=== PATIENT | female | born 1945 | race Caucasian/White ===

== ENCOUNTER 2021-02-25 15:08 | Inpatient (IN) | payer MEDICARE, BC ==
[2021-02-25 16:26] LABS: #Basophils 0.1 10x3/uL (0.0-0.2); #Monocytes 0.7 10x3/uL (0.0-1.1); #Neutrophils 10.1 10x3/uL (1.5-8.4); %Basophils 0.6 % (0.0-2.0); %Eosinophils 0.2 % (0.0-6.0); %Lymphocytes 5.4 % (18.0-47.0); %Monocytes 5.9 % (0.0-10.0); %Neutrophils 87.5 % (40.0-75.0); Hemoglobin 14.2 g/dL (12.0-15.5); Mean Corpuscular HGB CONC 32.3 g/dL (32.0-36.0); Mean Corpuscular Hemoglobin 28.7 pg (27.0-33.0); Mean Corpuscular Volume 88.7 fl (81.6-98.3); Mean Platelet Volume 10.2 fl (7.4-10.4); Platelet Count 276 10x3/uL (150-450); RBC Distribution Width 14.9 % (11.5-14.5); Red Blood Cell (RBC) Count 4.95 10x6/uL (3.90-5.03); White Blood Cell (WBC) Count 11.6 10x3/uL (3.5-10.5)
[2021-02-25 16:39] LABS: ALT (SGPT) 27 U/L (8-55); AST (SGOT) 25 U/L (5-34); Albumin 4.2 g/dL (3.4-4.8); Alkaline Phosphatase 155 U/L (40-110); Anion Gap 17 mmol/L (10-20); BUN (Urea Nitrogen) 19 mg/dL (9.8-20.1); Bilirubin, Total 0.5 mg/dL (0.2-1.2); Calc. Creatinine Clearance 0 mL/min (70-130); Calcium 8.9 mg/dL (7.8-10.44); Carbon Dioxide 22 mmol/L (23-31); Chloride 104 mmol/L (98-107); Globulin 2.7 g/dL (2.4-3.5); Glucose 185 mg/dL (83-110); Lipase 25 U/L (8-78); Potassium 3.2 mmol/L (3.5-5.1); Protein, Total 6.9 g/dL (5.8-8.1); Sodium 140 mmol/L (136-145)
[2021-02-25 17:27] LABS: SARS-CoV-2 NAA Rapid Test DETECTED (NotDetected)
[2021-02-25 19:04] LABS: Lactic Acid 3.1 mmol/L (0.5-2.2)
[2021-02-25] MEDS ORDERED: Calcium Carbonate 500 MG ChewTAB PO PRN (23:20)
[2021-02-25] MEDS ORDERED: Guaifenesin DM 100-10/5 ML UDCUP PO PRN (23:20)
[2021-02-25] MEDS ORDERED: Acetaminophen 325 MG TAB PO PRN (23:20)
[2021-02-25] MEDS ORDERED: Ondansetron PF 4 MG/2 ML Vial IVP PRN (23:20)
[2021-02-25] MEDS ORDERED: Potassium Chloride 20 MEQ in Premix Bag 1 BAG IVPB SCH (23:30)
[2021-02-25] MEDS ORDERED: 1/2 NS w/KCL 20 mEq 1,000 ML IV SCH (23:30)
[2021-02-26] MEDS ORDERED: Potassium Chloride 20 MEQ in Premix Bag 1 BAG IVPB SCH (02:30)
[2021-02-26] MEDS: 1/2 NS w/KCL 20 mEq 1,000 ML IV SCH ×2 (02:40→12:55)
[2021-02-26 04:21] LABS: #Monocytes 0.8 10x3/uL (0.0-1.1); %Basophils 0.3 % (0.0-2.0); %Lymphocytes 6.6 % (18.0-47.0); %Monocytes 10.3 % (0.0-10.0); %Neutrophils 82.4 % (40.0-75.0); Hemoglobin 13.5 g/dL (12.0-15.5); Mean Corpuscular HGB CONC 32.4 g/dL (32.0-36.0); Mean Corpuscular Volume 89.7 fl (81.6-98.3); Mean Platelet Volume 11.1 fl (7.4-10.4); Platelet Count 247 10x3/uL (150-450); RBC Distribution Width 14.9 % (11.5-14.5); Red Blood Cell (RBC) Count 4.65 10x6/uL (3.90-5.03); White Blood Cell (WBC) Count 7.3 10x3/uL (3.5-10.5)
[2021-02-26 05:10] LABS: Lactic Acid 3.1 mmol/L (0.5-2.2)
[2021-02-26 08:38] LABS: ALT (SGPT) 26 U/L (8-55); AST (SGOT) 37 U/L (5-34); Alkaline Phosphatase 143 U/L (40-110); Anion Gap 19 mmol/L (10-20); BUN (Urea Nitrogen) 14 mg/dL (9.8-20.1); Bilirubin, Total 0.4 mg/dL (0.2-1.2); Calc. Creatinine Clearance 0 mL/min (70-130); Calcium 8.9 mg/dL (7.8-10.44); Carbon Dioxide 23 mmol/L (23-31); Chloride 104 mmol/L (98-107); Globulin 3.4 g/dL (2.4-3.5); Glucose 114 mg/dL (83-110); Magnesium 2.2 mg/dL (1.6-2.6); Potassium 3.7 mmol/L (3.5-5.1); Protein, Total 7.4 g/dL (5.8-8.1); Sodium 142 mmol/L (136-145)
[2021-02-26] MEDS: Enoxaparin Sodium 40 MG/0.4 ML SYRINGE SC SCH (10:00)
[2021-02-26 12:42] LABS: Hemoglobin A1c 5.3 % (4.0-6.0)
[2021-02-26] MEDS: Zinc Gluconate 50 MG TAB PO SCH (17:25)
[2021-02-26] MEDS: Cholecalciferol 1,000 UNITS (25 MCG) TAB PO SCH (17:25)
[2021-02-26] MEDS: Ascorbic Acid 500 mg Chewable Tablet PO SCH (17:25)
[2021-02-26] MEDS: Famotidine 20 MG TAB PO SCH ×2 (17:25→21:33)
[2021-02-26] MEDS: Donepezil HCl 5 MG TAB PO SCH (21:33)
[2021-02-26] MEDS: Atorvastatin Calcium 20 MG TAB PO SCH (21:33)
[2021-02-27] MEDS: 1/2 NS w/KCL 20 mEq 1,000 ML IV SCH ×3 (01:24→16:19)
[2021-02-27 04:10] LABS: Bilirubin Neg (Negative); Blood, Urine 10 (Negative); Clarity Cloudy (Clear); Glucose, Urine (Dipstick) Normal (Negative); Ketone, Urine 5 mg/dL (Negative); Leukocyte 100 (Negative); Nitrite Negative (Negative); Protein, Urine (Dipstick) 30 mg/dl (Neg-Trace); Specific Gravity, Urine 1.025 (1.002-1.036)
[2021-02-27 04:42] LABS: Bacteria/HPF 4+ HPF (None Seen); RBC/HPF 0-3 HPF (0-3)
[2021-02-27 05:03] LABS: Lactic Acid 1.8 mmol/L (0.5-2.2)
[2021-02-27 07:07] LABS: Hemoglobin 12.9 g/dL (12.0-15.5); Mean Corpuscular HGB CONC 33.3 g/dL (32.0-36.0); Mean Corpuscular Hemoglobin 28.5 pg (27.0-33.0); Mean Corpuscular Volume 85.4 fl (81.6-98.3); Mean Platelet Volume 11.9 fl (7.4-10.4); Platelet Count 171 10x3/uL (150-450); RBC Distribution Width 14.7 % (11.5-14.5); Red Blood Cell (RBC) Count 4.53 10x6/uL (3.90-5.03); White Blood Cell (WBC) Count 7.3 10x3/uL (3.5-10.5)
[2021-02-27 07:27] LABS: Anion Gap 15 mmol/L (10-20); BUN (Urea Nitrogen) 15 mg/dL (9.8-20.1); Calc. Creatinine Clearance 0 mL/min (70-130); Calcium 8.3 mg/dL (7.8-10.44); Carbon Dioxide 20 mmol/L (23-31); Chloride 108 mmol/L (98-107); Glucose 160 mg/dL (83-110); Potassium 3.8 mmol/L (3.5-5.1); Sodium 139 mmol/L (136-145)
[2021-02-27 07:43] LABS: MDiff Complete? YES
[2021-02-27 08:01] LABS: Band 2 % (5-11); Lymphocytes 22 % (21-51); Monocytes 6 % (0-10); Neutrophil 70 % (42-75)
[2021-02-27 08:02] LABS: Platelet Morphology Comment Appears Adequate; RBC Morphology Normal
[2021-02-27] MEDS: Ascorbic Acid 500 mg Chewable Tablet PO SCH (08:43)
[2021-02-27] MEDS: Cholecalciferol 1,000 UNITS (25 MCG) TAB PO SCH (08:43)
[2021-02-27] MEDS: Famotidine 20 MG TAB PO SCH ×2 (08:43→20:53)
[2021-02-27] MEDS: Enoxaparin Sodium 40 MG/0.4 ML SYRINGE SC SCH (08:44)
[2021-02-27] MEDS: Zinc Gluconate 50 MG TAB PO SCH (08:44)
[2021-02-27] MEDS ORDERED: Ciprofloxacin 500 MG TAB PO SCH (20:30)
[2021-02-27] MEDS: Lactated Ringer's 1,000 ML IV SCH (20:52)
[2021-02-27] MEDS: Saccharomyces boulardii 250 MG CAP PO SCH (20:53)
[2021-02-27] MEDS: Atorvastatin Calcium 20 MG TAB PO SCH (20:53)
[2021-02-27] MEDS: Donepezil HCl 5 MG TAB PO SCH (20:53)
[2021-02-28 05:10] LABS: #Monocytes 0.5 10x3/uL (0.0-1.1); #Neutrophils 3.7 10x3/uL (1.5-8.4); %Basophils 0.7 % (0.0-2.0); %Eosinophils 0.2 % (0.0-6.0); %Lymphocytes 22.3 % (18.0-47.0); %Monocytes 9.8 % (0.0-10.0); %Neutrophils 66.6 % (40.0-75.0); Hemoglobin 14.7 g/dL (12.0-15.5); Mean Corpuscular Hemoglobin 28.4 pg (27.0-33.0); Mean Corpuscular Volume 86.3 fl (81.6-98.3); Mean Platelet Volume 11.7 fl (7.4-10.4); Platelet Count 145 10x3/uL (150-450); RBC Distribution Width 14.6 % (11.5-14.5); Red Blood Cell (RBC) Count 5.17 10x6/uL (3.90-5.03); White Blood Cell (WBC) Count 5.5 10x3/uL (3.5-10.5)
[2021-02-28 05:42] LABS: Anion Gap 14 mmol/L (10-20); BUN (Urea Nitrogen) 9 mg/dL (9.8-20.1); Calc. Creatinine Clearance 0 mL/min (70-130); Calcium 8.1 mg/dL (7.8-10.44); Carbon Dioxide 22 mmol/L (23-31); Chloride 109 mmol/L (98-107); Glucose 116 mg/dL (83-110); Potassium 4.2 mmol/L (3.5-5.1); Sodium 141 mmol/L (136-145)
[2021-02-28] MEDS: Ciprofloxacin 500 MG TAB PO SCH ×2 (06:13→18:01)
[2021-02-28] MEDS: Enoxaparin Sodium 40 MG/0.4 ML SYRINGE SC SCH (09:56)
[2021-02-28] MEDS: Zinc Gluconate 50 MG TAB PO SCH (09:56)
[2021-02-28] MEDS: Famotidine 20 MG TAB PO SCH ×2 (09:56→21:28)
[2021-02-28] MEDS: Cholecalciferol 1,000 UNITS (25 MCG) TAB PO SCH (09:56)
[2021-02-28] MEDS: Ascorbic Acid 500 mg Chewable Tablet PO SCH (09:56)
[2021-02-28] MEDS ORDERED: HumaLOG 300 UNITS/3 ML VIAL SC PRN ×2 (10:06)
[2021-02-28] MEDS ORDERED: Dextrose 50% Abboject 50 ML SYRINGE SLOW IVP PRN (10:06)
[2021-02-28] MEDS ORDERED: Dextrose 5% in Water 1,000 ML IV PRN (10:06)
[2021-02-28] MEDS: Lactated Ringer's 1,000 ML IV SCH (11:54)
[2021-02-28] MEDS: Atorvastatin Calcium 20 MG TAB PO SCH (21:28)
[2021-02-28] MEDS: Saccharomyces boulardii 250 MG CAP PO SCH (21:28)
[2021-02-28] MEDS: Donepezil HCl 5 MG TAB PO SCH (21:28)
[2021-03-01 08:07] VITALS: BP 126/63; TEMP 98
== END 2021-02-28 22:16 | disposition home or self-care (01) | DRG 871 ==
LOC: CSHERS 15:08 → OBSVTOIN 02-26 00:37 → CSHTELE 02-26 00:37
PROVIDERS: ADMIT Student in an Organized Health Care Education/Training Program; ATTEND Family Medicine
PROC: 8E0ZXY6 Isolation (ICD-10-PCS; principal; 2021-02-26)
DX: A41.89 Other specified sepsis (principal); U07.1 COVID-19; E87.2 Acidosis; K57.92 Diverticulitis of intestine, part unspecified, without perforation or abscess without bleeding; R65.10 Systemic inflammatory response syndrome (SIRS) of non-infectious origin without acute organ dysfunction; F03.90 Unspecified dementia, unspecified severity, without behavioral disturbance, psychotic disturbance, mood disturbance, and anxiety; R00.1 Bradycardia, unspecified; I95.9 Hypotension, unspecified; G47.30 Sleep apnea, unspecified; E78.2 Mixed hyperlipidemia; I10 Essential (primary) hypertension; K62.3 Rectal prolapse; E87.6 Hypokalemia; E86.0 Dehydration; E11.65 Type 2 diabetes mellitus with hyperglycemia; Z79.82 Long term (current) use of aspirin; Z79.899 Other long term (current) drug therapy; Z91.048 Other nonmedicinal substance allergy status; Z88.8 Allergy status to other drugs, medicaments and biological substances; Z90.49 Acquired absence of other specified parts of digestive tract; Z79.84 Long term (current) use of oral hypoglycemic drugs; Z90.710 Acquired absence of both cervix and uterus
CPT/HCPCS: 0240U; 36415; 36416; 71045; 74177; 80048; 80053; 81001; 83036; 83605; 83690; 83735; 85025; 87040; 87045; 87046; 87077; 87324; 87427; 87449; 93005; 93010; 94760; 96374; G0378; J1650; J3480; J7120

== ENCOUNTER 2021-03-03 01:20 | Inpatient (IN) | payer MEDICARE, BC ==
[2021-03-03 01:55] LABS: Actual Bicarbonate (HCO3a) 22.6 mEq/L (22-28); Base Excess (BEa) -0.6 mEq/L (-2.0 to +3.0); Carboxyhemoglobin (COHb) 0.6 gm% (0.0-3.0); Hemoglobin (Hb) 14.3 g/dL (12.0-16.0); O2 Tension (PaO2), arterial 103.8 mmHg (> 70.0); Potassium - ABG Lab 3.2 mmol/L (3.70-5.30); Puncture Site RRA; pH, Arterial 7.45 (7.35-7.45)
[2021-03-03 02:12] LABS: ALT (SGPT) 43 U/L (8-55); AST (SGOT) 51 U/L (5-34); Albumin 3.6 g/dL (3.4-4.8); Alkaline Phosphatase 141 U/L (40-110); Anion Gap 21 mmol/L (10-20); BUN (Urea Nitrogen) 19 mg/dL (9.8-20.1); Bilirubin, Total 0.4 mg/dL (0.2-1.2); Calc. Creatinine Clearance 0 mL/min (70-130); Calcium 8.2 mg/dL (7.8-10.44); Carbon Dioxide 20 mmol/L (23-31); Chloride 104 mmol/L (98-107); Globulin 2.3 g/dL (2.4-3.5); Glucose 182 mg/dL (83-110); Magnesium 2.3 mg/dL (1.6-2.6); Potassium 3.7 mmol/L (3.5-5.1); Protein, Total 5.9 g/dL (5.8-8.1); Sodium 141 mmol/L (136-145)
[2021-03-03 02:17] LABS: Bilirubin Neg (Negative); Blood, Urine 150 (Negative); Clarity Clear (Clear); Glucose, Urine (Dipstick) Normal (Negative); Ketone, Urine 5 mg/dL (Negative); Leukocyte Negative (Negative); Nitrite Negative (Negative); Protein, Urine (Dipstick) 30 mg/dl (Neg-Trace); Specific Gravity, Urine 1.025 (1.002-1.036)
[2021-03-03 02:18] LABS: #Eosinphils 0.1 10x3/uL (0.0-0.5); #Monocytes 0.5 10x3/uL (0.0-1.1); %Basophils 0.9 % (0.0-2.0); %Eosinophils 1.6 % (0.0-6.0); %Lymphocytes 38.1 % (18.0-47.0); %Monocytes 11.5 % (0.0-10.0); Hemoglobin 13.9 g/dL (12.0-15.5); Mean Corpuscular Hemoglobin 28.5 pg (27.0-33.0); Mean Corpuscular Volume 89.1 fl (81.6-98.3); Mean Platelet Volume 10.8 fl (7.4-10.4); Platelet Count 207 10x3/uL (150-450); RBC Distribution Width 14.5 % (11.5-14.5); Red Blood Cell (RBC) Count 4.88 10x6/uL (3.90-5.03); White Blood Cell (WBC) Count 4.5 10x3/uL (3.5-10.5)
[2021-03-03 02:20] LABS: #Neutrophils 2.2 10x3/uL (1.5-8.4); %Neutrophils 47.9 % (40.0-75.0)
[2021-03-03 02:28] LABS: Amphetamine Not Detected (NotDetected); Bacteria/HPF None Seen HPF (None Seen); Barbiturates Screen Not Detected (NotDetected); Benzodiazepine Screen Not Detected (NotDetected); Cocaine Metabolite Screen Not Detected (NotDetected); Methadone Not Detected (NotDetected); Methamphetamine Not Detected (NotDetected); Opiate Screen Not Detected (NotDetected); Oxycodone Screen Not Detected (NotDetected); Phencyclidine (PCP) Not Detected (NotDetected); Squamous Epithelial 0-3 HPF (0-3); THC/Cannabinoid Screen Not Detected (NotDetected); Tricyclic Screen Detected (NotDetected)
[2021-03-03 02:50] LABS: CKMB 2.8 ng/mL (0-6.6)
[2021-03-03] MEDS ORDERED: levETIRAcetam 500 MG/5 ML VIAL ONE (03:11)
[2021-03-03] MEDS ORDERED: levETIRAcetam in NS 100 ML ONE (03:12)
[2021-03-03] MEDS ORDERED: Lorazepam 2 MG/ML VIAL ONE (03:24)
[2021-03-03] MEDS ORDERED: Ondansetron ODT 4 MG TAB PO PRN (07:58)
[2021-03-03] MEDS ORDERED: Acetaminophen 650 MG Suppository PR PRN (07:58)
[2021-03-03] MEDS ORDERED: Ondansetron PF 4 MG/2 ML Vial IVP PRN (07:58)
[2021-03-03] MEDS ORDERED: Bisacodyl 5 MG TAB PO PRN (07:58)
[2021-03-03] MEDS ORDERED: Senokot S 8.6-50 MG TAB PO PRN (07:58)
[2021-03-03] MEDS ORDERED: Magnesium 2 GM/50 ML 2 GM in Premix Bag 1 BAG IVPB SCH (09:00)
[2021-03-03] MEDS ORDERED: Aspirin 325 MG TAB PO SCH (10:15)
[2021-03-03] MEDS ORDERED: Aspirin 300 MG Suppository PR SCH (10:30)
[2021-03-03 10:31] LABS: CKMB 11.8 ng/mL (0-6.6)
[2021-03-03] MEDS: Cholecalciferol 1,000 UNITS (25 MCG) TAB PO SCH (11:06)
[2021-03-03] MEDS: levETIRAcetam in NS 1,000 MG in Premix Bag 1 BAG IVPB SCH ×2 (11:07→22:00)
[2021-03-03 15:31] VITALS: BMI 31.1
[2021-03-03] MEDS ORDERED: FLU VACC QS2021-22(65YR UP)/PF 240 MCG/0.7 ML SYRINGE IM ONE (15:45)
[2021-03-03] MEDS ORDERED: Ciprofloxacin 500 MG TAB PO SCH (18:00)
[2021-03-03] MEDS ORDERED: Cefepime 2 GM VIAL ONE (21:35)
[2021-03-03] MEDS: Cefepime 2 GM in Sodium Chloride 0.9% 100 ML IVPB SCH (22:00)
[2021-03-04] MEDS: Atorvastatin Calcium 20 MG TAB PO SCH ×2 (02:18→20:35)
[2021-03-04] MEDS: Donepezil HCl 5 MG TAB PO SCH ×2 (02:19→20:34)
[2021-03-04] MEDS: Saccharomyces boulardii 250 MG CAP PO SCH ×2 (02:19→20:34)
[2021-03-04 06:43] LABS: ALT (SGPT) 27 U/L (8-55); Albumin 3.3 g/dL (3.4-4.8); Alkaline Phosphatase 138 U/L (40-110); Anion Gap 19 mmol/L (10-20); BUN (Urea Nitrogen) 11 mg/dL (9.8-20.1); Bilirubin, Total 0.7 mg/dL (0.2-1.2); Calc. Creatinine Clearance 125 mL/min (70-130); Calcium 7.8 mg/dL (7.8-10.44); Carbon Dioxide 19 mmol/L (23-31); Chloride 108 mmol/L (98-107); Globulin 2.3 g/dL (2.4-3.5); Glucose 120 mg/dL (83-110); Potassium 4.8 mmol/L (3.5-5.1); Protein, Total 5.6 g/dL (5.8-8.1); Sodium 141 mmol/L (136-145)
[2021-03-04 06:45] LABS: #Eosinphils 0.2 10x3/uL (0.0-0.5); #Monocytes 0.5 10x3/uL (0.0-1.1); %Basophils 0.4 % (0.0-2.0); %Eosinophils 2.7 % (0.0-6.0); %Lymphocytes 29.5 % (18.0-47.0); %Monocytes 7.9 % (0.0-10.0); %Neutrophils 58.6 % (40.0-75.0); Hemoglobin 14.6 g/dL (12.0-15.5); Mean Corpuscular HGB CONC 33.4 g/dL (32.0-36.0); Mean Corpuscular Hemoglobin 28.6 pg (27.0-33.0); Mean Corpuscular Volume 85.7 fl (81.6-98.3); Mean Platelet Volume 11.2 fl (7.4-10.4); RBC Distribution Width 14.5 % (11.5-14.5); White Blood Cell (WBC) Count 6.7 10x3/uL (3.5-10.5)
[2021-03-04 06:46] LABS: Platelet Count 160 10x3/uL (150-450)
[2021-03-04 06:50] LABS: AST (SGOT) 39 U/L (5-34)
[2021-03-04 07:50] LABS: Large Platelets SLIGHT; Platelet Clumps MODERATE; Platelet Morphology Comment PLT clumps seen-ADEQ
[2021-03-04 07:51] LABS: RBC Morphology Normal
[2021-03-04] MEDS ORDERED: Sodium Chloride 0.9% 500 ML IV SCH (09:00)
[2021-03-04] MEDS: Cefepime 2 GM in Sodium Chloride 0.9% 100 ML IVPB SCH ×2 (09:02→20:34)
[2021-03-04] MEDS: levETIRAcetam in NS 1,000 MG in Premix Bag 1 BAG IVPB SCH ×2 (09:09→20:34)
[2021-03-04] MEDS ORDERED: Sodium Chloride 0.9% 1,000 ML IV SCH (09:30)
[2021-03-05 08:12] LABS: Hemoglobin 13.4 g/dL (12.0-15.5); MDiff Complete? YES; Mean Corpuscular HGB CONC 31.8 g/dL (32.0-36.0); Mean Corpuscular Hemoglobin 28.5 pg (27.0-33.0); Mean Corpuscular Volume 89.6 fl (81.6-98.3); Mean Platelet Volume 10.7 fl (7.4-10.4); Platelet Count 192 10x3/uL (150-450); RBC Distribution Width 14.2 % (11.5-14.5); White Blood Cell (WBC) Count 6.8 10x3/uL (3.5-10.5)
[2021-03-05 08:27] LABS: ALT (SGPT) 18 U/L (8-55); AST (SGOT) 30 U/L (5-34); Albumin 3.2 g/dL (3.4-4.8); Alkaline Phosphatase 123 U/L (40-110); Anion Gap 15 mmol/L (10-20); BUN (Urea Nitrogen) 10 mg/dL (9.8-20.1); Bilirubin, Total 0.8 mg/dL (0.2-1.2); Calc. Creatinine Clearance 128 mL/min (70-130); Calcium 7.9 mg/dL (7.8-10.44); Carbon Dioxide 22 mmol/L (23-31); Chloride 107 mmol/L (98-107); Globulin 2.4 g/dL (2.4-3.5); Glucose 101 mg/dL (83-110); Potassium 4.2 mmol/L (3.5-5.1); Protein, Total 5.6 g/dL (5.8-8.1); Sodium 140 mmol/L (136-145)
[2021-03-05 09:43] LABS: Eosinophils 2 % (0-10); Lymphocytes 43 % (21-51); Monocytes 13 % (0-10); Neutrophil 42 % (42-75)
[2021-03-05 09:44] LABS: Platelet Morphology Comment Appears Adequate
[2021-03-05 09:45] LABS: RBC Morphology Normal
[2021-03-05] MEDS: Cholecalciferol 1,000 UNITS (25 MCG) TAB PO SCH (11:20)
[2021-03-05] MEDS: levETIRAcetam in NS 1,000 MG in Premix Bag 1 BAG IVPB SCH (11:38)
[2021-03-05] MEDS: Cefepime 2 GM in Sodium Chloride 0.9% 100 ML IVPB SCH (11:38)
[2021-03-05] MEDS: Atorvastatin Calcium 20 MG TAB PO SCH (22:00)
[2021-03-05] MEDS: Donepezil HCl 5 MG TAB PO SCH (22:00)
[2021-03-05] MEDS: levETIRAcetam 500 mg/5 ml Oral Solution PO SCH (22:01)
[2021-03-05] MEDS: Saccharomyces boulardii 250 MG CAP PO SCH (22:01)
[2021-03-06] MEDS: levETIRAcetam 500 mg/5 ml Oral Solution PO SCH (08:41)
[2021-03-06] MEDS: Cholecalciferol 1,000 UNITS (25 MCG) TAB PO SCH (08:41)
[2021-03-06] MEDS ORDERED: Aspirin Chewable 81 MG TAB PO SCH (09:00)
[2021-03-06 20:03] VITALS: BP 106/65; TEMP 98.4
== END 2021-03-06 16:20 | disposition home or self-care (01) | DRG 100 ==
LOC: CSHERS 01:20 → CSHTELE 06:53
PROVIDERS: ADMIT Family Medicine; ATTEND Family Medicine
PROC: 8E0ZXY6 Isolation (ICD-10-PCS; principal; 2021-03-03)
DX: R56.9 Unspecified convulsions (principal); U07.1 COVID-19; I21.A1 Myocardial infarction type 2; A09 Infectious gastroenteritis and colitis, unspecified; E87.2 Acidosis; I10 Essential (primary) hypertension; E78.2 Mixed hyperlipidemia; E11.65 Type 2 diabetes mellitus with hyperglycemia; E86.0 Dehydration; F03.90 Unspecified dementia, unspecified severity, without behavioral disturbance, psychotic disturbance, mood disturbance, and anxiety; Z88.8 Allergy status to other drugs, medicaments and biological substances; Z79.899 Other long term (current) drug therapy; Z90.49 Acquired absence of other specified parts of digestive tract
CPT/HCPCS: 36415; 36416; 36600; 51702; 70450; 70553; 71045; 80053; 80306; 81003; 81015; 82553; 82805; 83735; 83880; 84484; 85025; 93005; 94760; 96365; 96375; J0692; J1953; J2060; J3475; J3490; J7030; J7050

== ENCOUNTER 2021-04-11 10:37 | Emergency (ER) | payer MEDICARE, BC ==
[2021-04-11 11:48] LABS: #Basophils 0.1 10x3/uL (0.0-0.2); #Eosinphils 0.1 10x3/uL (0.0-0.5); #Monocytes 0.5 10x3/uL (0.0-1.1); #Neutrophils 5.4 10x3/uL (1.5-8.4); %Eosinophils 1.5 % (0.0-6.0); %Lymphocytes 24.1 % (18.0-47.0); %Monocytes 5.6 % (0.0-10.0); %Neutrophils 67.5 % (40.0-75.0); Hemoglobin 12.4 g/dL (12.0-15.5); Mean Corpuscular HGB CONC 31.9 g/dL (32.0-36.0); Mean Corpuscular Hemoglobin 28.7 pg (27.0-33.0); Mean Platelet Volume 10.6 fl (7.4-10.4); Platelet Count 276 10x3/uL (150-450); RBC Distribution Width 14.3 % (11.5-14.5); Red Blood Cell (RBC) Count 4.32 10x6/uL (3.90-5.03)
[2021-04-11 12:01] LABS: ALT (SGPT) 20 U/L (8-55); AST (SGOT) 19 U/L (5-34); Albumin 3.4 g/dL (3.4-4.8); Alkaline Phosphatase 158 U/L (40-110); Anion Gap 15 mmol/L (10-20); BUN (Urea Nitrogen) 21 mg/dL (9.8-20.1); Bilirubin, Total 0.4 mg/dL (0.2-1.2); CK (CPK) 59 U/L (29-168); Calc. Creatinine Clearance 0 mL/min (70-130); Calcium 8.6 mg/dL (7.8-10.44); Carbon Dioxide 26 mmol/L (23-31); Chloride 106 mmol/L (98-107); Globulin 2.4 g/dL (2.4-3.5); Glucose 125 mg/dL (83-110); Lipase 23 U/L (8-78); Potassium 3.8 mmol/L (3.5-5.1); Protein, Total 5.8 g/dL (5.8-8.1); Sodium 143 mmol/L (136-145)
[2021-04-11 12:40] LABS: Bilirubin Neg (Negative); Blood, Urine 10 (Negative); Clarity Cloudy (Clear); Glucose, Urine (Dipstick) Normal (Negative); Ketone, Urine 5 mg/dL (Negative); Leukocyte 500 (Negative); Nitrite Negative (Negative); Protein, Urine (Dipstick) 15 mg/dl (Neg-Trace); Specific Gravity, Urine 1.025 (1.002-1.036)
[2021-04-11 12:54] LABS: Bacteria/HPF 4+ HPF (None Seen); WBC/HPF 21-50 HPF (0-3)
[2021-04-11 12:55] LABS: Calcium Oxalate Crystals Rare HPF (None Seen); RBC/HPF 0-3 HPF (0-3); Squamous Epithelial 0-3 HPF (0-3)
[2021-04-11] MEDS ORDERED: cefTRIAXone\\ROCEPHIN 1 GM VIAL ONE ×2 (13:58)
== END 2021-04-11 14:16 | disposition home or self-care (01) ==
LOC: CSHERS 10:37
DX: N39.0 Urinary tract infection, site not specified (principal); D64.9 Anemia, unspecified; E78.5 Hyperlipidemia, unspecified; I10 Essential (primary) hypertension; Z79.899 Other long term (current) drug therapy; Z79.84 Long term (current) use of oral hypoglycemic drugs
CPT/HCPCS: 36415; 51702; 71045; 74177; 80053; 81003; 81015; 82550; 83605; 83690; 84484; 85025; 87040; 87077; 87086; 93005; 96374; J0696

== ENCOUNTER 2021-07-24 10:14 | Emergency (ER) | payer MEDICARE, BC ==
[2021-07-24 10:57] LABS: #Basophils 0.1 10x3/uL (0.0-0.2); #Eosinphils 0.1 10x3/uL (0.0-0.5); #Monocytes 0.3 10x3/uL (0.0-1.1); #Neutrophils 2.8 10x3/uL (1.5-8.4); %Basophils 1.1 % (0.0-2.0); %Eosinophils 1.7 % (0.0-6.0); %Lymphocytes 31.3 % (18.0-47.0); %Monocytes 5.8 % (0.0-10.0); %Neutrophils 59.9 % (40.0-75.0); Hemoglobin 12.5 g/dL (12.0-15.5); Mean Corpuscular HGB CONC 32.3 g/dL (32.0-36.0); Mean Corpuscular Hemoglobin 28.2 pg (27.0-33.0); Mean Corpuscular Volume 87.4 fl (81.6-98.3); Mean Platelet Volume 10.4 fl (7.4-10.4); Platelet Count 227 10x3/uL (150-450); RBC Distribution Width 14.8 % (11.5-14.5); Red Blood Cell (RBC) Count 4.43 10x6/uL (3.90-5.03); White Blood Cell (WBC) Count 4.7 10x3/uL (3.5-10.5)
[2021-07-24 11:11] LABS: ALT (SGPT) 18 U/L (8-55); AST (SGOT) 20 U/L (5-34); Albumin 3.5 g/dL (3.4-4.8); Alkaline Phosphatase 118 U/L (40-110); Anion Gap 13 mmol/L (10-20); BUN (Urea Nitrogen) 23 mg/dL (9.8-20.1); Bilirubin, Total 0.4 mg/dL (0.2-1.2); Calc. Creatinine Clearance 0 mL/min (70-130); Calcium 8.8 mg/dL (7.8-10.44); Carbon Dioxide 26 mmol/L (23-31); Chloride 104 mmol/L (98-107); Globulin 2.4 g/dL (2.4-3.5); Glucose 227 mg/dL (83-110); Potassium 3.6 mmol/L (3.5-5.1); Protein, Total 5.9 g/dL (5.8-8.1); Sodium 139 mmol/L (136-145)
== END 2021-07-24 13:11 | disposition home or self-care (01) ==
LOC: CSHERS 10:14
DX: G40.909 Epilepsy, unspecified, not intractable, without status epilepticus (principal); E78.00 Pure hypercholesterolemia, unspecified; E78.5 Hyperlipidemia, unspecified; I10 Essential (primary) hypertension
CPT/HCPCS: 36415; 80053; 85025; 99284

== ENCOUNTER 2022-01-27 11:06 | Emergency (ER) | payer MEDICARE, BC | END 2022-01-27 13:53 | disposition home or self-care (01) | LOC: CSHERS 11:06 | DX: S72.412A Displaced unspecified condyle fracture of lower end of left femur, initial encounter for closed fracture (principal); E78.00 Pure hypercholesterolemia, unspecified; I10 Essential (primary) hypertension; X50.1XXA Overexertion from prolonged static or awkward postures, initial encounter ==